=== PATIENT | female | born 1965 | race Caucasian/White ===

== ENCOUNTER 2017-02-07 14:26 | Observation (INO) | payer BC ==
--- NOTE | ~2017-02-07 | PREOPHP ---
PreOp History and Physical [facility] [address] [place]. [address] NAME: LIZETH SONI : 61 STATUS : ADM IN PAT#: [id number] AGE: 51 ADM/REG DATE : 02/07/17 MR#: [id number] REPORT SERV DATE: 02/08/17 DICTATED BY: PEDRO CARNEY DATE: 02/08/17 REPORT STATUS : Draft TRANSCRIBED BY: SHILO DATE: 02/08/17 CHIEF COMPLAINT: Intractable neck pain, right shoulder, arm pain. HISTORY OF PRESENT ILLNESS: A 51-year-old active [id number] female who presented to my office yesterday afternoon with intractable neck, shoulder, and arm pain that has been present for several month starting in July 2016, but for the last 2 weeks, has been just totally intractable, during the 7 months since, and she has been through time, medication, physical therapy, direct care supervisor, anti-inflammatory medications, nothing has helped. For the last 2 weeks ago, the pain has been 10/10, the pain is mostly in the shoulder and arm on the left side. The patient was seen by Dr. Cleaning, and an MRI was obtained, the MRI shows a very large disk extrusion with severe impingement on the left at C6-7, there is a moderate disk herniation at C5-6 with some nerve impingement as well. The patient was in so much intractable pain, her said he just did not feel comfortable taking her home because she had not been able to sleep, she was crying at home just totally 10/10 pain all the time. When I examined her, she had significant loss of strength in her wrist extensors, it was 4/5, and in her wrist flexors and triceps, it was 3/5. She has significant neurologic deficit associated with these disk herniations. She was admitted for IV pain control, will be taken to surgery for anterior cervical diskectomy, C5-6, C6-7, with an interbody arthrodesis. The patient's plain x-rays are completely normal. She has good lordosis, good disk height. No facet arthropathy, etc. She is an excellent candidate for arthroplasty versus fusion. I did go over the difference between fusion versus arthroplasty for restabilization, and the patient states she definitely want to have arthroplasty instead. Prior to surgery, I have gone over the risks, benefits, alternatives, and expectations in great detail. Consent form has been signed. Also, please note because of the complexity of the surgery, the need to identify correct level of surgery intraoperatively as well as desire to carry out the safest and most precise dissection, I feel the intraoperative navigation will be mandatory. PAST MEDICAL HISTORY: Hypertension. PAST SURGICAL HISTORY: [place] teeth extraction. CURRENT MEDICATIONS: Propranolol, hydrocodone, Flexeril. ALLERGIES: NONE. SOCIAL HISTORY: She is . Stopped smoking just 2 months ago. She has been a smoker at half pack per day . She drinks about 5 beers in a week or less. She does work full-time as a second worker. She has to dependence at home. FAMILY HISTORY: Father had coronary artery disease. REVIEW OF SYSTEMS: She wears corrective lenses. She is edentulous. She has gone through menopause about 4 years ago and is not currently sexually active. Denies any chest pain, pressure, or shortness of breath. She has had some pain from this that does radiate into the anterior PreOp History and Physical [address] [place]. [address] NAME: LIZETH SONI : 61 STATUS : ADM IN [facility]#: [id number] AGE: 51 ADM/REG DATE : 02/07/17 MR#: [id number] REPORT SERV DATE: 02/08/17 DICTATED BY: PEDRO CARNEY DATE: 02/08/17 REPORT STATUS : Draft TRANSCRIBED BY: SHILO DATE: 02/08/17 chest. PHYSICAL EXAMINATION: VITAL SIGNS: She is 5 feet 4 inches, 140 pounds. GENERAL: She is alert, cooperative, well oriented. She appears in acute painful distress. HEENT: She is normocephalic. Pupils are equal and reactive to light. Extraocular muscles are intact. Oral exam is grossly normal. No thyromegaly is palpated. No carotid bruits are auscultated. MUSCULOSKELETAL: The neck itself has some either severe spasm, she has very limited range of motion. She held her arm in an abducted arm position throughout the entire exam because it was so painful otherwise. She has a positive Spurling sign, positive abducted arm sign on the left. She has loss of both brachioradialis and triceps reflex on the left. It is normal on the right. The strengths are as recorded above, the wrist flexors and triceps were 3/5. There is flexion of the wrist extensors are 4/5. There is decreased sensation in the left C7 distribution to light will much to light touch and pinwheel. Derek sign is negative. Tinel sign is negative to elbow and wrist. Shoulders have no signs of instability or impingement. LUNGS: Clear to auscultation. HEART: Regular rate and rhythm. ABDOMEN: Soft with good bowel sounds. No peritoneal signs are noted. EXTREMITIES: Lower extremity musculoskeletal exam is grossly intact and normal. There are good pulses in all 4 extremities. No abnormal skin lesions are found. ASSESSMENT: Intractable left-sided radiculopathy will C6 and C7 secondary to the moderate-to large disk herniation, moderate at C5-6, a very large intractable impingement at C6-7. RECOMMENDATION: As listed above. TERESITA/SHILO Pedro Carney D.O. / [id number]
--- NOTE | ~2017-02-07 | OP ---
Record Of Operation [facility] [address] [place]. [address] NAME: LIZETH SONI : 61 STATUS : ADM IN PAT#: [id number] AGE: 51 ADM/REG DATE : 02/07/17 MR#: [id number] REPORT SERV DATE: 02/08/17 DICTATED BY: PEDRO CARNEY DATE: 02/08/17 REPORT STATUS : Draft TRANSCRIBED BY: MODL DATE: 02/08/17 DATE OF PROCEDURE: 02/08/2017 PREOPERATIVE DIAGNOSES: Herniated nucleus polyposis, with intractable radiculopathy, left side C5-6, and C6-7. POSTOPERATIVE DIAGNOSIS: Herniated nucleus polyposis, with intractable radiculopathy, left side C5-6, and C6-7. PROCEDURE: 1. Microscopic and navigation-assisted surgery. 2. Anterior cervical diskectomy, C5-6 and C6-7. 3. Implantation of a Prestige LP disk arthroplasty, C5-6 and C6-7. SURGEON: Pedro Carney D.O. MAINTENANCE SHOP TECHNICIAN: Nick [address]. ANESTHESIA: General. ESTIMATED BLOOD LOSS: 20 mL. INDICATIONS FOR SURGERY: Indication for surgery and risks have been explained. They are listed in last office note as well history and physical. See that for detail. DESCRIPTION OF PROCEDURE: Antibiotic prophylaxis was given. Neurophysiology monitoring leads were inserted. The patient was brought to the operative suite, general anesthetic including endotracheal intubation was administered. Vieira catheter was not necessary. The patient was in a supine position on fluoroscopic [place] spine frame. The scalp was painted with Betadine solution. Sullivan 3-point fixation was attached to the skull using 60 pounds of torque in standard position. The [place] was attached to the [place] bed. The StuffBuff navigational registration frame was attached to the Sullivan. Isolation drapes were placed. The neck was scrubbed with Hibiclens solution. DuraPrep was painted. Sterile drapes were applied. Intraoperative CT scan with O-arm obtained, CT information was used to register the navigational system. With navigational assistance, we identified the C5-6 and C6-7. At the mid body of C6 area on the left side a transverse 2.5 cm Linares-Arroyo skin incision was carried out. The platysma was incised in line with the skin incision. The superficial layer of the deep cervical fascia was released along the anterior border of the sternocleidomastoid. Blunt dissection was carried out to the retropharyngeal space where the longus coli muscles were subperiosteally elevated. We re-identified the correct level of surgery. Once, we had the retractors in place, the microscope was sterilely draped and used throughout the remainder of the procedure. Record Of Operation [facility] [address] [place]. [address] NAME: LIZETH SONI : 61 STATUS : ADM IN PAT#: [id number] AGE: 51 ADM/REG DATE : 02/07/17 MR#: [id number] REPORT SERV DATE: 02/08/17 DICTATED BY: PEDRO CARNEY DATE: 02/08/17 REPORT STATUS : Draft TRANSCRIBED BY: SHILO DATE: 02/08/17 With navigational assistance, I identified the midline and then I placed a [place] distractor pin in the cephalad portion of C6 and in the caudal portions of C7. We then carried out the anterior diskectomy with curettes and rongeurs. I incised the anterior longitudinal ligament. I elevated the endplate cartilage, removed the disk in its entirety. Once, the disk was removed completely, a 3 mm tasha bur and 2 mm tasha bur was used to debride the uncinate processes. The posterior longitudinal ligament was taken down with a 1 mm Kerrison rongeur and a large extruded disk fragment was removed from central and left side which was markedly impinging on the nerve root. After the diskectomy was completed, the wound was irrigated, width, depth, and height of the disk space was measured. Fluoroscopy was then brought into the operative suite, sterilely draped, and used throughout the remainder of the procedure. Initially, we determined the height and depth, we did choose a 6 x 18 mm implant. We tried a 7 mm, but it was distracting the facet joint too much in a lateral view. We then placed a drill guide and checked the AP view to make sure we had proper rotational alignment. We then drilled the four holes. The rail cutter was then used to cut the rail slots, and after the rail slots were finished, and checked with fluoroscopy, we then implanted the permanent 6 x 18 Prestige LP through the rail slots. After implantation of the implant the wound was irrigated. AP and lateral x-rays were taken showing excellent position of the implant. We then moved to C5-6, we carried out the same identical steps with diskectomy, foraminotomy, removal of the disk herniation on the left. The 6 x 18 Prestige LP was implanted using the same identical steps as previously described. Finally all retractors were removed. AP and lateral x-rays showed excellent position of both implants, complete coverage of the endplates. There was good lordosis. The wound was irrigated. No drain was necessary. The platysma was closed with running 3-0 Vicryl suture. The subcutaneous tissue was closed with 3-0 Vicryl suture. Subcuticular 4-0 PDS was used for skin closure. Sterile dressings were applied. The patient awakened, extubated, and taken recovery room in satisfactory condition having tolerated procedure well. TERESITA/SHILO Pedro Carney D.O. / [id number] CC: John Quinones AMY
[2017-02-07 15:43] LABS: ASCORBIC ACID (UR NOT ORDER) NEG (NEG); BILIRUBIN, URINE NEGATIVE (NEG); KETONE, URINE NEGATIVE (NEG); LEUKOCYTE ESTERASE(NOT OR NEG (NEG); WBC (NOT ORDERED) (RFLEX) < 1 (0-5)
[2017-02-07 16:30] LABS: BASOPHILS 0.5 %; BASOPHILS ABSOLUTE 0.03 10/3/uL (0.0-0.16); EOSINOPHILS 1.2 %; EOSINOPHILS ABSOLUTE 0.07 10/3/uL (0.0-0.53); HEMATOCRIT 47.7 % (36.0-48.0); HEMOGLOBIN 16.2 g/dL (12.0-16.0); IMMATURE GRANULOCYTES 0.2 %; IMMATURE GRANULOCYTES ABSOLUTE 0.01 10/3/uL (0.0-0.11); LYMPHOCYTES 35.8 %; LYMPHOCYTES ABSOLUTE 2.06 10/3/uL (0.67-4.30); MANUAL DIFF NO %; MEAN CORPUSCULAR HEMOGLOB 31.4 pg (26.0-34.0); MEAN CORPUSCULAR VOLUME 92.4 fL (80-100); MEAN PLATELET VOLUME 9.4 fL (9.2-13.0); MONOCYTES 6.1 %; MONOCYTES ABSOLUTE 0.35 10/3/uL (0.21-1.20); NEUTROPHILS 56.2 %; NEUTROPHILS ABSOLUTE 3.23 10/3/uL (2.02-8.40); PLATELET COUNT 229 10/3/uL (150-400); RBC DISTRIBUTION WIDTH 12.8 % (12.0-16.0); RED CELL COUNT 5.16 10/6/uL (4.0-5.6); WHITE BLOOD CELLS 5.8 10/3/uL (4.5-10.5)
[2017-02-07 16:42] LABS: A/G RATIO 1.2 (0.7-1.9); ALBUMIN 4.2 G/DL (3.5-5.0); ALKALINE PHOSPHATASE 91 U/L (45-117); BUN (BLOOD UREA NITROGEN) 22 MG/DL (6-23); CALCIUM, SERUM 8.6 MG/DL (8.5-10.4); CHLORIDE, SERUM 100 MMOL/L (96-112); CO2 (CARBON DIOXIDE) 27 MMOL/L (24-34); CREATININE 0.63 MG/DL (0.55-1.02); GFR AFRICAN AMERICAN 119 ML/MIN (>=60); GFR NON AFRICAN AMERICAN 102 ML/MIN (>=60); GLOBULIN 3.4 G/DL (2.5-4.1); SGPT(ALT) 29 U/L (5-65); SODIUM, SERUM 141 MMOL/L (135-148); TOTAL BILIRUBIN 0.3 MG/DL (0-1.2); TOTAL PROTEIN 7.6 G/DL (6.0-8.5)
[2017-02-07 16:43] LABS: GLUCOSE, SERUM 88 MG/DL (60-99); POTASSIUM, SERUM 3.5 MMOL/L (3.5-5.3)
[2017-02-07 16:44] LABS: SGOT(AST) 25 U/L (5-40)
[2017-02-07] MEDS ORDERED: NORCO1 TA2 PO (17:05)
[2017-02-07] MEDS ORDERED: NAP375 PO (17:06)
[2017-02-07] MEDS ORDERED: EFFEX75 PO (17:06)
[2017-02-07] MEDS ORDERED: I40 PO (17:06)
[2017-02-07] MEDS ORDERED: VALARIAN ROOT PO (17:07)
[2017-02-07] MEDS ORDERED: MELA3 PO (17:08)
[2017-02-08] MEDS ORDERED: OXYCOD PO (17:28)
[2017-02-08] MEDS ORDERED: NAP500 PO (17:28)
[2017-02-08] MEDS ORDERED: METHOC500B PO (17:28)
== END 2017-02-08 21:52 | disposition home or self-care (01) ==
LOC: 3SO 14:26
PROVIDERS: Orthopaedic Surgery Orthopaedic Surgery of the Spine
PROC: 0RB30ZZ Excision of Cervical Vertebral Disc, Open Approach (ICD-10-PCS; principal; 2017-02-08 09:15)
DX: M50.222 Other cervical disc displacement at C5-C6 level (principal); I10 Essential (primary) hypertension; F32.9 Major depressive disorder, single episode, unspecified; F17.200 Nicotine dependence, unspecified, uncomplicated
CPT/HCPCS: 71010; 80053; 81001; 82962; 85025; 88304; 88311; 93005; 96374; 96375; A9270-GY; C1713; G0378; J0690; J2250; J2405; J2710; J3010